=== PATIENT | female | born 1985 | race Two or more races ===

== ENCOUNTER 2017-04-29 13:16 | Inpatient (IN) | payer SELFPAY ==
[~2017-04-29 13:16] MED LIST: Nalbuphine 20 MG/1 ML Amp IVPUSH PRN; Ondansetron 4 MG/2 ML SDV IVPUSH PRN; Sodium Chloride 0.9% 10 ML Syringe FLUSH PRN
[2017-04-29] MEDS ORDERED: Oxytocin/Lactated Ringers 10 UNIT/1,000 ML BAG IV SCH (13:30)
[2017-04-29] MEDS: Lactated Ringers 1,000 ML IV SCH (13:46)
--- NOTE | 2017-04-29 14:31 | PCM.PREANE ---
Preanesthetic Assessment - Procedure Proposed Procedure: DENG - Anesthesia/Transfusion/Family Hx Anesthesia History: No Prior Anesthesia Family History of Anesthesia Reaction: No Transfusion History: No Prior Transfusion(s) Intubation History: Unknown - Review of Systems General: No Symptoms Pulmonary: No Symptoms Cardiovascular: No Symptoms Gastrointestinal: Other (GERD ) Neurological: No Symptoms Other: Reports: None - Physical Assessment NPO Status Date: 04/29/17 NPO Status Time: 08:00 O2 Sat by Pulse Oximetry: 99 Respiratory Rate: 18 Vital Signs: Last Vital Signs Temp 36.3 C 04/29/17 13:00 Pulse 76 04/29/17 13:00 Resp 18 04/29/17 13:00 BP 129/78 04/29/17 13:00 Pulse Ox 99 04/29/17 13:00 Height: 1.6 m Weight: 88.723 kg ASA Class: 2 Mental Status: Alert & Oriented x3 Airway Class: Mallampati = 1 Dentition: Reports: Normal Dentition Thyro-Mental Finger Breadths: 3 Mouth Opening Finger Breadths: 3 ROM/Head Extension: Full Lungs: Clear to Auscultation, Normal Respiratory Effort Cardiovascular: Regular Rate, Regular Rhythm - Lab Values: Laboratory Last Values WBC 12.59 K/mm3 (3.98-10.04) H 04/29/17 13:45 RBC 4.05 M/mm3 (3.98-5.22) 04/29/17 13:45 Hgb 11.9 gm/L (11.2-15.7) 04/29/17 13:45 Hct 35.7 % (34.1-44.9) 04/29/17 13:45 MCV 88.1 fl (79.4-94.8) 04/29/17 13:45 MCH 29.4 pg (25.6-32.2) 04/29/17 13:45 MCHC 33.3 g/dl (32.2-35.5) 04/29/17 13:45 RDW Std Deviation 42.5 fL (36.4-46.3) 04/29/17 13:45 Plt Count 212 K/mm3 (182-369) 04/29/17 13:45 MPV 12.0 fl (9.4-12.3) 04/29/17 13:45 Urine Color Yellow (Yellow) 04/29/17 12:47 Urine Appearance Clear (Clear) 04/29/17 12:47 Urine pH 7.0 (5.0-8.0) 04/29/17 12:47 Ur Specific [place] 1.020 (1.005-1.030) 04/29/17 12:47 Urine Protein 1+ (Negative) H 04/29/17 12:47 Urine Glucose (UA) Negative (Negative) 04/29/17 12:47 Urine Ketones Negative (Negative) 04/29/17 12:47 Urine Occult Blood 2+ (Negative) H 04/29/17 12:47 Urine Nitrite Positive (Negative) H 04/29/17 12:47 Urine Bilirubin Negative (Negative) 04/29/17 12:47 Urine Urobilinogen 0.2 (0.2-1.0) 04/29/17 12:47 Ur Leukocyte Esterase 1+ (Negative) H 04/29/17 12:47 Urine RBC 20-30 /hpf (0-5) H 04/29/17 12:47 Urine WBC 5-10 /hpf (0-5) H 04/29/17 12:47 Ur Epithelial Cells 0-5 /hpf (0-5) 04/29/17 12:47 Urine Bacteria Moderate /hpf (FEW) H 04/29/17 12:47 Urine Mucus Not seen /hpf (FEW) 04/29/17 12:47 Membrane Rupture Positive H 04/29/17 12:53 Blood Type AB POSITIVE 04/29/17 13:45 - Allergies Allergies/Adverse Reactions: Allergies Allergy/AdvReac Type Severity Reaction Status Date / Time No Known Allergies Allergy Verified 04/29/17 12:59 - Blood Blood Available: No Product(s) Available: None - Anesthesia Plan Pre-Op Medication Ordered: None - Acknowledgements Anesthesia Type Planned: Epidural Pt an Appropriate Candidate for the Planned Anesthesia: Yes Alternatives and Risks of Anesthesia Discussed w Pt/Guardian: Yes Pt/Guardian Understands and Agrees with Anesthesia Plan: Yes PreAnesthesia Questionnaire - CURRENT (IN HOUSE) MEDS Current Meds: Current Medications Lactated Ringer's (Ringers, Lactated) 1,000 mls @ 100 mls/hr IV ASDIRECTED DILIP Last Admin: 04/29/17 13:46 Dose: 999 mls/hr Oxytocin/Lactated Ringer's (Pitocin In Lr 10 Units/1,000 Ml) 10 unit in 1,000 mls @ 500 mls/hr IV .CONTINUOUS DILIP Nalbuphine HCl (Nubain) 10 mg IVPUSH Q2H PRN PRN Reason: Pain (moderate 4-6) Ondansetron HCl (Zofran) 4 mg IVPUSH Q4H PRN PRN Reason: Nausea/Vomiting Sodium Chloride (Saline Flush) 10 ml FLUSH ASDIRECTED PRN PRN Reason: Keep Vein Open
--- NOTE | 2017-04-29 15:08 | PCM.LDHP ---
L&D History of Present Illness - General Date of Service: 04/29/17 Admit Problem/Dx: Patient Status Order with Admit Dx/Problem 04/29/17 13:16 Patient Status [ADT] Routine Admission Diagnosis/Problem Admission Diagnosis/Problem Source of Information: Patient History Limitations: Reports: No Limitations - History of Present Illness Introduction:: Patient is a 31 y/o at 39 5/7 wks who presents today for SROM. Thinks this occurred around 1100 today. Presented to L&D and initially rated contractions as a 1/10, but now have progressed to a 3/10. Otherwise also notes issues of some dysuria. No fevers, chills, etc. 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 (Approximate): Social & Family History - Tobacco Use Smoking Status *Q: Never Smoker - Alcohol Use Alcohol Use History: No - Recreational Drug Use Recreational Drug Use: No H&P Review of Systems - Review of Systems: Review Of Systems: See Below General: Reports: No Symptoms Pulmonary: Reports: No Symptoms Cardiovascular: Reports: No Symptoms Gastrointestinal: Reports: Abdominal Pain (some contractions) Genitourinary: Reports: Dysuria Musculoskeletal: Reports: No Symptoms Psychiatric: Reports: No Symptoms L&D Exam - Exam Exam: See Below - Vital Signs Vital Signs: Last Vital Signs Temp 36.3 C 04/29/17 13:00 Pulse 76 04/29/17 13:00 Resp 18 04/29/17 14:49 BP 129/78 04/29/17 13:00 Pulse Ox 99 04/29/17 14:49 Weight: 88.723 kg - OB Specific Contraction Intensity: Mild to Moderate Movement: Active Heart Tones: Present Heart Tones per Min: 145 Heart Rate (FHR) Variability: Moderate (6-25 bmp) Presentation: Vertex - Caro Score Caro Score Cervix Position: Midposition Caro Score Consistency: Soft Caro Score Effacement: 31-50% Caro Score Dilation: 1-2 cm Caro Score 's Station: -3 Caro Score Total: 5 - Exam General: Alert, Oriented, Cooperative Lungs: Clear to Auscultation, Normal Respiratory Effort Cardiovascular: Regular Rate, Regular Rhythm GI/Abdominal Exam: Soft Genitourinary: Normal external exam Extremities: Normal Inspection Skin: Warm, Dry, Intact - Patient Data Lab Results Last 24 hrs: Laboratory Results - last 24 hr 04/29/17 04/29/17 04/29/17 Range/Units 12:47 12:53 13:45 WBC 12.59 H (3.98-10.04) K/mm3 RBC 4.05 (3.98-5.22) M/mm3 Hgb 11.9 (11.2-15.7) gm/L Hct 35.7 (34.1-44.9) % MCV 88.1 (79.4-94.8) fl MCH 29.4 (25.6-32.2) pg MCHC 33.3 (32.2-35.5) g/dl RDW Std Deviation 42.5 (36.4-46.3) fL Plt Count 212 (182-369) K/mm3 MPV 12.0 (9.4-12.3) fl Urine Color Yellow (Yellow) Urine Appearance Clear (Clear) Urine pH 7.0 (5.0-8.0) Ur Specific [place] 1.020 (1.005-1.030) Urine Protein 1+ H (Negative) Urine Glucose (UA) Negative (Negative) Urine Ketones Negative (Negative) Urine Occult Blood 2+ H (Negative) Urine Nitrite Positive H (Negative) Urine Bilirubin Negative (Negative) Urine Urobilinogen 0.2 (0.2-1.0) Ur Leukocyte Esterase 1+ H (Negative) Urine RBC 20-30 H (0-5) /hpf Urine WBC 5-10 H (0-5) /hpf Ur Epithelial Cells 0-5 (0-5) /hpf Urine Bacteria Moderate H (FEW) /hpf Urine Mucus Not seen (FEW) /hpf Membrane Rupture Positive H Blood Type Gel Antibody Screen 04/29/17 Range/Units 13:45 WBC (3.98-10.04) K/mm3 RBC (3.98-5.22) M/mm3 Hgb (11.2-15.7) gm/L Hct (34.1-44.9) % MCV (79.4-94.8) fl MCH (25.6-32.2) pg MCHC (32.2-35.5) g/dl RDW Std Deviation (36.4-46.3) fL Plt Count (182-369) K/mm3 MPV (9.4-12.3) fl Urine Color (Yellow) Urine Appearance (Clear) Urine pH (5.0-8.0) Ur Specific [place] (1.005-1.030) Urine Protein (Negative) Urine Glucose (UA) (Negative) Urine Ketones (Negative) Urine Occult Blood (Negative) Urine Nitrite (Negative) Urine Bilirubin (Negative) Urine Urobilinogen (0.2-1.0) Ur Leukocyte Esterase (Negative) Urine RBC (0-5) /hpf Urine WBC (0-5) /hpf Ur Epithelial Cells (0-5) /hpf Urine Bacteria (FEW) /hpf Urine Mucus (FEW) /hpf Membrane Rupture Blood Type AB POSITIVE Gel Antibody Screen Negative Result Diagrams: 04/29/17 13:45 - Problem List (1) 39 weeks gestation of SNOMED Code(s): 49390240 ICD Code: Z3A.39 - 39 WEEKS GESTATION OF Status: Acute Current Visit: Yes (2) Gestational diabetes mellitus, class A1 SNOMED Code(s): 78617145 ICD Code: O24.410 - GESTATIONAL DIABETES MELLITUS IN , DIET CONTROLLED Status: Acute Current Visit: Yes (3) SROM (spontaneous rupture of membranes) SNOMED Code(s): 643324780 ICD Code: NSD8042 - Status: Acute Current Visit: Yes (4) UTI (urinary tract infection) SNOMED Code(s): 81705134 ICD Code: N39.0 - URINARY TRACT INFECTION, SITE NOT SPECIFIED Status: Acute Current Visit: Yes Qualifiers: Urinary tract infection type: acute cystitis Hematuria presence: without hematuria Qualified Code(s): N30.00 - Acute cystitis without hematuria Problem List Initiated/Reviewed/Updated: Yes Orders Last 24hrs: Active Orders 24 hr Category Date Time Status Patient Status [ADT] Routine ADT 04/29/17 13:16 Active Activity as Tolerated [RC] PFP Care 04/29/17 13:16 Active Blood Glucose Check, Bedside [RC] Q4H Care 04/29/17 13:19 Active Communication Order [RC] ASDIRECTED Care 04/29/17 13:16 Active Heart Tones [RC] ASDIRECTED Care 04/29/17 13:16 Active Non Stress Test [RC] PER UNIT ROUTINE Care 04/29/17 13:00 Active Notify Provider [RC] PFP Care 04/29/17 13:16 Active Notify Provider [RC] PRN Care 04/29/17 13:16 Active Peripheral IV Care [RC] . DIRECTED Care 04/29/17 13:16 Active Vital Signs [RC] PER UNIT ROUTINE Care 04/29/17 13:00 Active Vital Signs [RC] PER UNIT ROUTINE Care 04/29/17 13:16 Active Regular Diet [DIET] Diet 04/29/17 Lunch Active Regular Diet [DIET] Diet 04/29/17 Lunch Active PATIENT RETYPE [BBK] Routine Lab 04/29/17 13:45 Results TYPE AND SCREEN [BBK] Routine Lab 04/29/17 13:45 Results UA W/MICROSCOPIC [URIN] Routine Lab 04/29/17 14:55 Received Lactated Ringers [Ringers, Lactated] 1,000 ml Med 04/29/17 13:30 Active IV ASDIRECTED Nalbuphine [Nubain] Med 04/29/17 13:16 Active 10 mg IVPUSH Q2H PRN Ondansetron [Zofran] Med 04/29/17 13:16 Active 4 mg IVPUSH Q4H PRN Oxytocin/Lactated Ringers [Pitocin in LR 10 Units/1,000 Med 04/29/17 13:30 Active ML] 10 unit in 1,000 ml IV .CONTINUOUS Sodium Chloride 0.9% [Saline Flush] Med 04/29/17 13:16 Active 10 ml FLUSH ASDIRECTED PRN Electronic Heart Tones Ext w TOCO [WOMSER] Oth 04/29/17 13:16 Ordered Routine Electronic Heart Tones Internal [WOMSER] Per Unit Oth 04/29/17 13:16 Ordered Routine Peripheral IV Insertion Adult [OM.PC] Routine Oth 04/29/17 13:16 Ordered Resuscitation Status Routine Resus Stat 04/29/17 13:00 Ordered Medication Orders Lactated Ringer's (Ringers, Lactated) 1,000 mls @ 100 mls/hr IV ASDIRECTED DILIP Last Admin: 04/29/17 13:46 Dose: 999 mls/hr Oxytocin/Lactated Ringer's (Pitocin In Lr 10 Units/1,000 Ml) 10 unit in 1,000 mls @ 500 mls/hr IV .CONTINUOUS DILIP Nalbuphine HCl (Nubain) 10 mg IVPUSH Q2H PRN PRN Reason: Pain (moderate 4-6) Ondansetron HCl (Zofran) 4 mg IVPUSH Q4H PRN PRN Reason: Nausea/Vomiting Sodium Chloride (Saline Flush) 10 ml FLUSH ASDIRECTED PRN PRN Reason: Keep Vein Open Assessment/Plan Comment:: 31 y/o at 39 5/7 wks presents for SROM * CBC and T&S * As patient feels contractions have gotten stronger since SROM will defer augmentation for now, but 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 Will give one dose of Ceftriaxone for presumed UTI while awaiting culture results
[2017-04-29] MEDS ORDERED: Sodium Chloride 0.9% 250 ML IV SCH (17:10)
[2017-04-29] MEDS: cefTRIAXone 1 GM in Sodium Chloride 0.9% 100 ML IV SCH (17:36)
--- NOTE | 2017-04-29 19:34 | PCM.PNLD ---
Labor Progress Note - VS & Meds Vital Signs: Last Vital Signs Temp 36.3 C 04/29/17 13:00 Pulse 76 04/29/17 13:00 Resp 18 04/29/17 14:49 BP 129/78 04/29/17 13:00 Pulse Ox 99 04/29/17 14:49 Active Medications: Current Medications Lactated Ringer's (Ringers, Lactated) 1,000 mls @ 100 mls/hr IV ASDIRECTED [facility] Last Admin: 04/29/17 13:46 Dose: 999 mls/hr Oxytocin/Lactated Ringer's (Pitocin In Lr 10 Units/1,000 Ml) 10 unit in 1,000 mls @ 500 mls/hr IV .CONTINUOUS [facility] Ceftriaxone Sodium 1 gm/ (Sodium Chloride) 100 mls @ 200 mls/hr IV Q24H [facility] Last Admin: 04/29/17 17:36 Dose: 200 mls/hr Sodium Chloride (Normal Saline) 250 mls @ 75 mls/hr IV ASDIRECTED [facility] Last Admin: 04/29/17 17:36 Dose: 75 mls/hr Nalbuphine HCl (Nubain) 10 mg IVPUSH Q2H PRN PRN Reason: Pain (moderate 4-6) Ondansetron HCl (Zofran) 4 mg IVPUSH Q4H PRN PRN Reason: Nausea/Vomiting Sodium Chloride (Saline Flush) 10 ml FLUSH ASDIRECTED PRN PRN Reason: Keep Vein Open - Uterine Contractions Uterine Monitoring Mode: External [place] Contraction Intensity: Moderate Uterine Resting Tone: Soft - Monitoring Monitor Mode: External Ultrasound Heart Rate (FHR) Baseline: 150 Heart Rate (FHR) Variability: Moderate (6-25 bmp) Accelerations: Present, 10x10 (=/<32 wks) Decelerations: None Strip Review: Category I - Labor Progress (Free Text) Labor Progress: Patient doing well. Rates contractions as a 5/10. No other new concerns. Defer SVE for now as do not want to put patient at increased risk for infection. As long as contractions keep getting stronger will defer augmentation. If no stronger by 2300 will initiate pitocin at that time. Family agrees.
[2017-04-30] MEDS ORDERED: Oxytocin/Lactated Ringers 10 UNIT/1,000 ML BAG IV SCH
--- NOTE | 2017-04-30 00:30 | PCM.PNLD ---
Labor Progress Note - VS & Meds Vital Signs: Last Vital Signs Temp 36.3 C 04/29/17 13:00 Pulse 76 04/29/17 13:00 Resp 18 04/29/17 14:49 BP 129/78 04/29/17 13:00 Pulse Ox 99 04/29/17 14:49 Active Medications: Current Medications Lactated Ringer's (Ringers, Lactated) 1,000 mls @ 100 mls/hr IV ASDIRECTED DILIP Last Admin: 04/29/17 13:46 Dose: 999 mls/hr Oxytocin/Lactated Ringer's (Pitocin In Lr 10 Units/1,000 Ml) 10 unit in 1,000 mls @ 500 mls/hr IV .CONTINUOUS DILIP Ceftriaxone Sodium 1 gm/ (Sodium Chloride) 100 mls @ 200 mls/hr IV Q24H DILIP Last Admin: 04/29/17 17:36 Dose: 200 mls/hr Sodium Chloride (Normal Saline) 250 mls @ 75 mls/hr IV ASDIRECTED DILIP Last Admin: 04/29/17 17:36 Dose: 75 mls/hr Oxytocin/Lactated Ringer's (Pitocin In Lr 10 Units/1,000 Ml) 10 unit in 1,000 mls @ 12 mls/hr IV TITRATE DILIP; 2 MUNITS/MIN PRN Reason: Protocol Nalbuphine HCl (Nubain) 10 mg IVPUSH Q2H PRN PRN Reason: Pain (moderate 4-6) Ondansetron HCl (Zofran) 4 mg IVPUSH Q4H PRN PRN Reason: Nausea/Vomiting Sodium Chloride (Saline Flush) 10 ml FLUSH ASDIRECTED PRN PRN Reason: Keep Vein Open - Uterine Contractions Uterine Monitoring Mode: External [place] Contraction Intensity: Moderate Uterine Resting Tone: Soft - Monitoring Monitor Mode: External Ultrasound Heart Rate (FHR) Baseline: 145 Heart Rate (FHR) Variability: Moderate (6-25 bmp) Accelerations: Present, 10x10 (=/<32 wks) Decelerations: None Strip Review: Category I - Vaginal Exam Dilation (cm): 2-3 Effacement (Percent): 60 Station: -3 Cervical Position: Midposition - Labor Progress (Free Text) Labor Progress: Patient states in the last 30 minutes or so contractions have become slightly stronger. Only getting them every 5 minutes or so per her report. Is agreeable to pitocin augmentation now.
[2017-04-30] MEDS: Lactated Ringers 1,000 ML IV SCH ×5 (00:36→12:51)
[2017-04-30] MEDS ORDERED: diphenhydrAMINE 50 MG/ML SDV IVPUSH PRN (05:57)
[2017-04-30] MEDS ORDERED: Ondansetron 4 MG/2 ML SDV IVPUSH PRN (05:57)
[2017-04-30] MEDS ORDERED: ePHEDrine 50 MG/ML SDV IVPUSH PRN (05:57)
[2017-04-30] MEDS ORDERED: fentaNYL 100 MCG/2 ML SDV EPIDUR PRN (05:57)
[2017-04-30] MEDS ORDERED: Bupivacaine/fentaNYL/NS 100 ML Bag EPIDUR SCH (06:00)
--- NOTE | 2017-04-30 08:28 | PCM.PNLD ---
Labor Progress Note - VS & Meds Vital Signs: Last Vital Signs Temp 36.3 C 04/29/17 13:00 Pulse 76 04/29/17 13:00 Resp 18 04/29/17 14:49 BP 129/78 04/29/17 13:00 Pulse Ox 99 04/29/17 14:49 Active Medications: Current Medications Diphenhydramine HCl (Benadryl) 25 mg IVPUSH Q6H PRN PRN Reason: Pruritis Ephedrine Sulfate (Ephedrine Sulfate) 5 mg IVPUSH ASDIRECTED PRN PRN Reason: Hypotension Fentanyl (Sublimaze) 100 mcg EPIDUR Q3H PRN PRN Reason: Pain Last Admin: 04/30/17 06:21 Dose: 100 mcg Fentanyl/Bupivacaine HCl (Fentanyl/Bupivacaine/Ns 2 Mcg-0.125% 100 Ml) 100 ml EPIDUR ASDIRECTED DILIP Last Admin: 04/30/17 06:21 Dose: 100 ml Lactated Ringer's (Ringers, Lactated) 1,000 mls @ 100 mls/hr IV ASDIRECTED DILIP Last Admin: 04/30/17 08:16 Dose: 500 mls/hr Oxytocin/Lactated Ringer's (Pitocin In Lr 10 Units/1,000 Ml) 10 unit in 1,000 mls @ 500 mls/hr IV .CONTINUOUS DILIP Ceftriaxone Sodium 1 gm/ (Sodium Chloride) 100 mls @ 200 mls/hr IV Q24H DILIP Last Admin: 04/29/17 17:36 Dose: 200 mls/hr Sodium Chloride (Normal Saline) 250 mls @ 75 mls/hr IV ASDIRECTED DILIP Last Admin: 04/29/17 17:36 Dose: 75 mls/hr Oxytocin/Lactated Ringer's (Pitocin In Lr 10 Units/1,000 Ml) 10 unit in 1,000 mls @ 12 mls/hr IV TITRATE DILIP; 2 MUNITS/MIN PRN Reason: Protocol Last Titration: 04/30/17 06:45 Dose: 1 munits/min, 6 mls/hr Nalbuphine HCl (Nubain) 10 mg IVPUSH Q2H PRN PRN Reason: Pain (moderate 4-6) Ondansetron HCl (Zofran) 4 mg IVPUSH Q4H PRN PRN Reason: Nausea/Vomiting Ondansetron HCl (Zofran) 4 mg IVPUSH ONETIME PRN PRN Reason: Nausea/Vomiting Sodium Chloride (Saline Flush) 10 ml FLUSH ASDIRECTED PRN PRN Reason: Keep Vein Open - Uterine Contractions Uterine Monitoring Mode: External [place] Contraction Intensity: Moderate Uterine Resting Tone: Soft - Monitoring Monitor Mode: External Ultrasound Heart Rate (FHR) Baseline: 145 Heart Rate (FHR) Variability: Moderate (6-25 bmp) Accelerations: Present, 10x10 (=/<32 wks) Decelerations: Late (isolated, after epidural) Strip Review: Category II - Vaginal Exam Dilation (cm): 4 Effacement (Percent): 80 Station: -2 Cervical Position: Midposition - Labor Progress (Free Text) Labor Progress: Patient became very uncomfortable after start of pitocin. Currently at 1. Completed epidural around 0645. Checked now with forebag noted. AROM performed with release of clear fluid. Continue present management
--- NOTE | 2017-04-30 13:08 | PCM.PNLD ---
Labor Progress Note - VS & Meds Vital Signs: Last Vital Signs Temp 36.3 C 04/29/17 13:00 Pulse 76 04/29/17 13:00 Resp 18 04/29/17 14:49 BP 129/78 04/29/17 13:00 Pulse Ox 99 04/29/17 14:49 Active Medications: Current Medications Diphenhydramine HCl (Benadryl) 25 mg IVPUSH Q6H PRN PRN Reason: Pruritis Ephedrine Sulfate (Ephedrine Sulfate) 5 mg IVPUSH ASDIRECTED PRN PRN Reason: Hypotension Fentanyl (Sublimaze) 100 mcg EPIDUR Q3H PRN PRN Reason: Pain Last Admin: 04/30/17 06:21 Dose: 100 mcg Fentanyl/Bupivacaine HCl (Fentanyl/Bupivacaine/Ns 2 Mcg-0.125% 100 Ml) 100 ml EPIDUR ASDIRECTED DILIP Last Admin: 04/30/17 06:21 Dose: 100 ml Lactated Ringer's (Ringers, Lactated) 1,000 mls @ 100 mls/hr IV ASDIRECTED DILIP Last Admin: 04/30/17 12:51 Dose: 500 mls/hr Oxytocin/Lactated Ringer's (Pitocin In Lr 10 Units/1,000 Ml) 10 unit in 1,000 mls @ 500 mls/hr IV .CONTINUOUS DILIP Ceftriaxone Sodium 1 gm/ (Sodium Chloride) 100 mls @ 200 mls/hr IV Q24H DILIP Last Admin: 04/29/17 17:36 Dose: 200 mls/hr Sodium Chloride (Normal Saline) 250 mls @ 75 mls/hr IV ASDIRECTED DILIP Last Admin: 04/29/17 17:36 Dose: 75 mls/hr Oxytocin/Lactated Ringer's (Pitocin In Lr 10 Units/1,000 Ml) 10 unit in 1,000 mls @ 12 mls/hr IV TITRATE DILIP; 2 MUNITS/MIN PRN Reason: Protocol Last Titration: 04/30/17 12:54 Dose: 10 munits/min, 60 mls/hr Nalbuphine HCl (Nubain) 10 mg IVPUSH Q2H PRN PRN Reason: Pain (moderate 4-6) Ondansetron HCl (Zofran) 4 mg IVPUSH Q4H PRN PRN Reason: Nausea/Vomiting Ondansetron HCl (Zofran) 4 mg IVPUSH ONETIME PRN PRN Reason: Nausea/Vomiting Sodium Chloride (Saline Flush) 10 ml FLUSH ASDIRECTED PRN PRN Reason: Keep Vein Open - Uterine Contractions Uterine Monitoring Mode: External [place] Contraction Intensity: Moderate Uterine Resting Tone: Soft - Monitoring Monitor Mode: External Ultrasound Heart Rate (FHR) Baseline: 150 Heart Rate (FHR) Variability: Moderate (6-25 bmp) Accelerations: Present, 10x10 (=/<32 wks) Decelerations: Late (rare) Strip Review: Category II - Vaginal Exam Dilation (cm): 5-6 Effacement (Percent): 90 Station: -1 Cervical Position: Midposition - Labor Progress (Free Text) Labor Progress: Patient pitocin started again at 1030 - currently at 1000. Starting to feel more of her contractions with epidural. FHT's with periods of less variabiliy and then moderate variability with spontaneous accelerations. Good scalp stimulation with check. Continue present management
[2017-04-30] MEDS ORDERED: Calcium Carbonate 500 MG Tab.Chew PO PRN (13:17)
[2017-04-30] MEDS ORDERED: Sodium Chloride 0.9% 100 ML ONE (17:44)
[2017-04-30] MEDS ORDERED: Ampicillin 2 GM in Sodium Chloride 0.9% 100 ML IV ONE (17:45)
--- NOTE | 2017-04-30 17:47 | PCM.SN ---
- Free Text/Narrative Note: 1745 Patient started pushing. [place] warm to touch. FHR with increase in baseline to 165 bpm. Temp of 101.2. Will start Ampicillin and Gentamicin for chorioamnionitis Liz Hirsch MD
[2017-04-30] MEDS: cefTRIAXone 1 GM in Sodium Chloride 0.9% 100 ML IV SCH (17:55)
[2017-04-30] MEDS ORDERED: Acetaminophen 325 MG Tab PO ONE (18:00)
--- NOTE | 2017-04-30 19:55 | PCM.DEL ---
L & D Note - General Info Date of Service: 04/30/17 - Delivery Note Labor: Augmented by Oxytocin Delivery Outcome: Livebirth Delivery Method: Spontaneous Vaginal Delivery-Single Presentation: Left Occiput Anterior (MOLLY) Nuchal Cord: None Anesthesia Type: Epidural Amniotic Fluid Description: Clear Episiotomy Type: None Laceration: 2nd Degree, Labial (extended up bilateral labia) Suture type: Vicryl Suture size: 2-0 Placenta: Intact, Spontaneous Cord: 3 Vessels Estimated Blood Loss: 300 Resuscitation Needed: Yes : Bulb Syringe, Stimulated, Warmed, Sherwood Used, Warmer Used Score 1 min: 7 Score 5 min: 9 Delivery Comments (Free Text/Narrative):: Patient found to be complete and began pushing. With maternal pushing there was gradual tachycardia. Maternal temperature assessed and found to be elevated to 101.2. Ampicillin and Gentamicin started for chorioamnionitis. Patient continued pushing and head delivered from MOLLY presentation. No nuchal cord present. With gentle downward traction the shoulders and body delivered. Infant placed on maternal abdomen. Cord clamped and cut. Cord blood obtained. Placenta allowed time to separate and expelled intact. Inspection of the perineum showed a 2nd degree vaginal laceration which then extended up the bilateral labia. Vaginal portion of laceration repaired with a 2-0 vicryl in the typical fashion. The bilateral labial portion of tears repaired with separate 2-0 vicryl sutures in a subcuticular stitch - Patient Data Vitals - Most Recent: Last Vital Signs Temp 36.3 C 04/29/17 13:00 Pulse 76 04/29/17 13:00 Resp 18 04/29/17 14:49 BP 129/78 04/29/17 13:00 Pulse Ox 99 04/29/17 14:49 Weight - Most Recent: 88.723 kg I&O - Last 24 Hours: Intake & Output 04/30/17 04/30/17 04/30/17 06:59 14:59 22:59 Intake Total 0 Balance 0 Lab Results Last 24 Hours: Laboratory Results - last 24 hr 04/29/17 04/30/17 04/30/17 Range/Units 21:32 02:31 05:19 POC Glucose 60 L 81 103 (70-105) mg/dL 04/30/17 04/30/17 04/30/17 Range/Units 08:13 12:26 16:08 POC Glucose 106 H 88 95 (70-105) mg/dL [place] Results Last 24 Hours: Microbiology 04/29/17 14:45 Urine Culture - Preliminary Urine, Catheterized Gram Positive Cocci Med Orders - Current: Current Medications Calcium Carbonate/Glycine (Tums) 500 mg PO Q2H PRN PRN Reason: Indigestion Diphenhydramine HCl (Benadryl) 25 mg IVPUSH Q6H PRN PRN Reason: Pruritis Ephedrine Sulfate (Ephedrine Sulfate) 5 mg IVPUSH ASDIRECTED PRN PRN Reason: Hypotension Fentanyl (Sublimaze) 100 mcg EPIDUR Q3H PRN PRN Reason: Pain Last Admin: 04/30/17 06:21 Dose: 100 mcg Fentanyl/Bupivacaine HCl (Fentanyl/Bupivacaine/Ns 2 Mcg-0.125% 100 Ml) 100 ml EPIDUR ASDIRECTED DILIP Last Admin: 04/30/17 06:21 Dose: 100 ml Lactated Ringer's (Ringers, Lactated) 1,000 mls @ 100 mls/hr IV ASDIRECTED [facility] Last Admin: 04/30/17 12:51 Dose: 500 mls/hr Oxytocin/Lactated Ringer's (Pitocin In Lr 10 Units/1,000 Ml) 10 unit in 1,000 mls @ 500 mls/hr IV .CONTINUOUS DILIP Ceftriaxone Sodium 1 gm/ (Sodium Chloride) 100 mls @ 200 mls/hr IV Q24H DILIP Last Admin: 04/30/17 17:55 Dose: Not Given Sodium Chloride (Normal Saline) 250 mls @ 75 mls/hr IV ASDIRECTED [facility] Last Admin: 04/29/17 17:36 Dose: 75 mls/hr Oxytocin/Lactated Ringer's (Pitocin In Lr 10 Units/1,000 Ml) 10 unit in 1,000 mls @ 12 mls/hr IV TITRATE DILIP; 2 MUNITS/MIN PRN Reason: Protocol Last Titration: 04/30/17 15:30 Dose: 8 munits/min, 48 mls/hr Nalbuphine HCl (Nubain) 10 mg IVPUSH Q2H PRN PRN Reason: Pain (moderate 4-6) Ondansetron HCl (Zofran) 4 mg IVPUSH Q4H PRN PRN Reason: Nausea/Vomiting Ondansetron HCl (Zofran) 4 mg IVPUSH ONETIME PRN PRN Reason: Nausea/Vomiting Sodium Chloride (Saline Flush) 10 ml FLUSH ASDIRECTED PRN PRN Reason: Keep Vein Open Discontinued Medications Ampicillin Sodium 2 gm/ Sodium (Chloride) 100 mls @ 200 mls/hr IV ONETIME ONE Stop: 04/30/17 18:14 Last Admin: 04/30/17 17:57 Dose: 200 mls/hr Gentamicin Sulfate 440 mg/ (Sodium Chloride) 111 mls @ 200 mls/hr IV ONETIME ONE Stop: 04/30/17 18:13 Last Admin: 04/30/17 18:26 Dose: 200 mls/hr Sodium Chloride (Normal Saline) Confirm Administered Dose 100 mls @ as directed .ROUTE .STK-MED ONE Stop: 04/30/17 17:45 Last Admin: 04/30/17 17:59 Dose: Not Given - Problem List & Annotations (1) 39 weeks gestation of SNOMED Code(s): 49847491 Code(s): Z3A.39 - 39 WEEKS GESTATION OF Status: Acute Current Visit: Yes (2) Gestational diabetes mellitus, class A1 SNOMED Code(s): 54065325 Code(s): O24.410 - GESTATIONAL DIABETES MELLITUS IN , DIET CONTROLLED Status: Acute Current Visit: Yes (3) SROM (spontaneous rupture of membranes) SNOMED Code(s): 337883774 Code(s): GKR8784 - Status: Acute Current Visit: Yes (4) UTI (urinary tract infection) SNOMED Code(s): 10556655 Code(s): N39.0 - URINARY TRACT INFECTION, SITE NOT SPECIFIED Status: Acute Current Visit: Yes Qualifiers: Urinary tract infection type: acute cystitis Hematuria presence: without hematuria Qualified Code(s): N30.00 - Acute cystitis without hematuria (5) Chorioamnionitis SNOMED Code(s): 61741456 Code(s): O41.1290 - CHORIOAMNIONITIS, UNSP TRIMESTER, NOT APPLICABLE OR UNSP Status: Acute Current Visit: Yes Qualifiers: Fetus number: single or unspecified fetus Trimester: third trimester Qualified Code(s): O41.1230 - Chorioamnionitis, third trimester, not applicable or unspecified (6) Vaginal delivery SNOMED Code(s): 904631582 Code(s): O80 - ENCOUNTER FOR FULL-TERM UNCOMPLICATED DELIVERY Status: Acute Current Visit: Yes - Problem List Review Problem List Initiated/Reviewed/Updated: Yes - My Orders Last 24 Hours: My Active Orders 04/30/17 00:00 Oxytocin/Lactated Ringers [Pitocin in LR 10 Units/1,000 ML] 10 unit in 1,000 ml IV TITRATE 04/30/17 13:17 Calcium Carbonate [Tums] 500 mg PO Q2H PRN - Assessment Assessment:: 31 y/o G1 now P1001 PPD#0 from - Plan Plan:: * Chorioamnionitis in labor - s/p Amp and Gent about 2 hours prior to delivery * UTI in - diagnosed on admission and received 1 dose of ceftriaxone at that time. Culture preliminary Group A strep. Will order Keflex while in house to continue treatment * GODMA1 - fasting blood sugar in AM. 2hr GTT at check * Routine cares * Encourage breast feeding * Discharge home in 2 days
--- NOTE | 2017-04-30 20:00 | PCM.DEL ---
L & D Note - General Info Date of Service: 04/30/17 - Delivery Note Presentation: Vertex - Patient Data Vitals - Most Recent: Last Vital Signs Temp 36.3 C 04/29/17 13:00 Pulse 76 04/29/17 13:00 Resp 18 04/29/17 14:49 BP 129/78 04/29/17 13:00 Pulse Ox 99 04/29/17 14:49 Weight - Most Recent: 88.723 kg I&O - Last 24 Hours: Intake & Output 04/30/17 04/30/17 04/30/17 06:59 14:59 22:59 Intake Total 0 Balance 0 Lab Results Last 24 Hours: Laboratory Results - last 24 hr 04/29/17 04/30/17 04/30/17 Range/Units 21:32 02:31 05:19 POC Glucose 60 L 81 103 (70-105) mg/dL 04/30/17 04/30/17 04/30/17 Range/Units 08:13 12:26 16:08 POC Glucose 106 H 88 95 (70-105) mg/dL [place] Results Last 24 Hours: Microbiology 04/29/17 14:45 Urine Culture - Preliminary Urine, Catheterized Gram Positive Cocci Med Orders - Current: Current Medications Calcium Carbonate/Glycine (Tums) 500 mg PO Q2H PRN PRN Reason: Indigestion Diphenhydramine HCl (Benadryl) 25 mg IVPUSH Q6H PRN PRN Reason: Pruritis Ephedrine Sulfate (Ephedrine Sulfate) 5 mg IVPUSH ASDIRECTED PRN PRN Reason: Hypotension Fentanyl (Sublimaze) 100 mcg EPIDUR Q3H PRN PRN Reason: Pain Last Admin: 04/30/17 06:21 Dose: 100 mcg Fentanyl/Bupivacaine HCl (Fentanyl/Bupivacaine/Ns 2 Mcg-0.125% 100 Ml) 100 ml EPIDUR ASDIRECTED DILIP Last Admin: 04/30/17 06:21 Dose: 100 ml Lactated Ringer's (Ringers, Lactated) 1,000 mls @ 100 mls/hr IV ASDIRECTED DILIP Last Admin: 04/30/17 12:51 Dose: 500 mls/hr Oxytocin/Lactated Ringer's (Pitocin In Lr 10 Units/1,000 Ml) 10 unit in 1,000 mls @ 500 mls/hr IV .CONTINUOUS DILIP Ceftriaxone Sodium 1 gm/ (Sodium Chloride) 100 mls @ 200 mls/hr IV Q24H DILIP Last Admin: 04/30/17 17:55 Dose: Not Given Sodium Chloride (Normal Saline) 250 mls @ 75 mls/hr IV ASDIRECTED DILIP Last Admin: 04/29/17 17:36 Dose: 75 mls/hr Oxytocin/Lactated Ringer's (Pitocin In Lr 10 Units/1,000 Ml) 10 unit in 1,000 mls @ 12 mls/hr IV TITRATE DILIP; 2 MUNITS/MIN PRN Reason: Protocol Last Titration: 04/30/17 15:30 Dose: 8 munits/min, 48 mls/hr Nalbuphine HCl (Nubain) 10 mg IVPUSH Q2H PRN PRN Reason: Pain (moderate 4-6) Ondansetron HCl (Zofran) 4 mg IVPUSH Q4H PRN PRN Reason: Nausea/Vomiting Ondansetron HCl (Zofran) 4 mg IVPUSH ONETIME PRN PRN Reason: Nausea/Vomiting Sodium Chloride (Saline Flush) 10 ml FLUSH ASDIRECTED PRN PRN Reason: Keep Vein Open Discontinued Medications Ampicillin Sodium 2 gm/ Sodium (Chloride) 100 mls @ 200 mls/hr IV ONETIME ONE Stop: 04/30/17 18:14 Last Admin: 04/30/17 17:57 Dose: 200 mls/hr Gentamicin Sulfate 440 mg/ (Sodium Chloride) 111 mls @ 200 mls/hr IV ONETIME ONE Stop: 04/30/17 18:13 Last Admin: 04/30/17 18:26 Dose: 200 mls/hr Sodium Chloride (Normal Saline) Confirm Administered Dose 100 mls @ as directed .ROUTE .STK-MED ONE Stop: 04/30/17 17:45 Last Admin: 04/30/17 17:59 Dose: Not Given - Problem List & Annotations (1) 39 weeks gestation of SNOMED Code(s): 23861989 Code(s): Z3A.39 - 39 WEEKS GESTATION OF Status: Acute Current Visit: Yes (2) Gestational diabetes mellitus, class A1 SNOMED Code(s): 72611176 Code(s): O24.410 - GESTATIONAL DIABETES MELLITUS IN , DIET CONTROLLED Status: Acute Current Visit: Yes (3) SROM (spontaneous rupture of membranes) SNOMED Code(s): 689805774 Code(s): PGT2339 - Status: Acute Current Visit: Yes (4) UTI (urinary tract infection) SNOMED Code(s): 52962308 Code(s): N39.0 - URINARY TRACT INFECTION, SITE NOT SPECIFIED Status: Acute Current Visit: Yes Qualifiers: Urinary tract infection type: acute cystitis Hematuria presence: without hematuria Qualified Code(s): N30.00 - Acute cystitis without hematuria - My Orders Last 24 Hours: My Active Orders 04/30/17 00:00 Oxytocin/Lactated Ringers [Pitocin in LR 10 Units/1,000 ML] 10 unit in 1,000 ml IV TITRATE 04/30/17 13:17 Calcium Carbonate [Tums] 500 mg PO Q2H PRN 04/30/17 19:55 Patient Status Manage Transfer [TRANSFER] Routine - Plan Plan:: 31 y/o at 39 5/7 wks presents for SROM * CBC and T&S * As patient feels contractions have gotten stronger since SROM will defer augmentation for now, but 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 Will give one dose of Ceftriaxone for presumed UTI while awaiting culture results
[2017-04-30] MEDS ORDERED: Docusate Sodium 100 MG Cap PO PRN (20:06)
[2017-04-30] MEDS ORDERED: Witch Hazel Medicated Pads 100/Jar TOP PRN (20:06)
[2017-04-30] MEDS ORDERED: Acetaminophen 325 MG Tab PO PRN (20:06)
[2017-04-30] MEDS ORDERED: Lanolin 100% Cream 7 GM Tube TOP PRN (20:06)
[2017-04-30] MEDS ORDERED: Benzocaine/Menthol 20%-0.5% Spray 56 GM Canister TOP PRN (20:06)
[2017-04-30] MEDS ORDERED: Bupivacaine 0.25% 10 ML SDV ONE (22:22)
[2017-05-01] MEDS: Cephalexin 500 MG Cap PO SCH ×4 (00:41→19:45)
--- NOTE | 2017-05-01 08:46 | PCM.SN ---
- Free Text/Narrative Note: day 1 Afebrile, no heavy vaginal bleeding no leg cramping uterus involuting normally patient stable possibly home tomorrow.
[2017-05-01] MEDS: Ibuprofen 600 MG Tab PO PRN (12:51)
[2017-05-02] MEDS: Cephalexin 500 MG Cap PO SCH ×4 (01:27→17:54)
--- NOTE | 2017-05-02 09:56 | PCM.DCSUM1 ---
Discharge Summary - Hospital Course Free Text/Narrative:: [facility] LIVE L/D Delivery Note Patient Name: LEELA HAYS Date of : 89 Patient Status: Inpatient Attending Provider: Liz Hirsch Date: 04/30/17 19:55 Initialization Date: 04/30/17 19:55 L & D Note - General Info Date of Service: 04/30/17 - Delivery Note Labor: Augmented by Oxytocin Delivery Outcome: Livebirth Delivery Method: Spontaneous Vaginal Delivery-Single Presentation: Left Occiput Anterior (MOLLY) Nuchal Cord: None Anesthesia Type: Epidural Amniotic Fluid Description: Clear Episiotomy Type: None Laceration: 2nd Degree, Labial (extended up bilateral labia) Suture type: Vicryl Suture size: 2-0 Placenta: Intact, Spontaneous Cord: 3 Vessels Estimated Blood Loss: 300 Resuscitation Needed: Yes : Bulb Syringe, Stimulated, Warmed, Eggleston Used, Warmer Used Score 1 min: 7 Score 5 min: 9 Delivery Comments (Free Text/Narrative):: Patient found to be complete and began pushing. With maternal pushing there was gradual tachycardia. Maternal temperature assessed and found to be elevated to 101.2. Ampicillin and Gentamicin started for chorioamnionitis. Patient continued pushing and head delivered from MOLLY presentation. No nuchal cord present. With gentle downward traction the shoulders and body delivered. Infant placed on maternal abdomen. Cord clamped and cut. Cord blood obtained. Placenta allowed time to separate and expelled intact. Inspection of the perineum showed a 2nd degree vaginal laceration which then extended up the bilateral labia. Vaginal portion of laceration repaired with a 2-0 vicryl in the typical fashion. The bilateral labial portion of tears repaired with separate 2-0 vicryl sutures in a subcuticular stitch - Patient Data Vitals - Most Recent: Last Vital Signs Temp 36.3 C 04/29/17 13:00 Pulse 76 04/29/17 13:00 Resp 18 04/29/17 14:49 BP 129/78 04/29/17 13:00 Pulse Ox 99 04/29/17 14:49 Weight - Most Recent: 88.723 kg I&O - Last 24 Hours: Intake & Output 04/30/17 04/30/17 04/30/17 06:59 14:59 22:59 Intake Total 0 Balance 0 Lab Results Last 24 Hours: Laboratory Results - last 24 hr 04/29/17 04/30/17 04/30/17 Range/Units 21:32 02:31 05:19 POC Glucose 60 L 81 103 (70-105) mg/dL 04/30/17 04/30/17 04/30/17 Range/Units 08:13 12:26 16:08 POC Glucose 106 H 88 95 (70-105) mg/dL [place] Results Last 24 Hours: Microbiology 04/29/17 14:45 Urine Culture - Preliminary Urine, Catheterized Gram Positive Cocci Med Orders - Current: Current Medications Calcium Carbonate/Glycine (Tums) 500 mg PO Q2H PRN PRN Reason: Indigestion Diphenhydramine HCl (Benadryl) 25 mg IVPUSH Q6H PRN PRN Reason: Pruritis Ephedrine Sulfate (Ephedrine Sulfate) 5 mg IVPUSH ASDIRECTED PRN PRN Reason: Hypotension Fentanyl (Sublimaze) 100 mcg EPIDUR Q3H PRN PRN Reason: Pain Last Admin: 04/30/17 06:21 Dose: 100 mcg Fentanyl/Bupivacaine HCl (Fentanyl/Bupivacaine/Ns 2 Mcg-0.125% 100 Ml) 100 ml EPIDUR ASDIRECTED [facility] Last Admin: 04/30/17 06:21 Dose: 100 ml Lactated Ringer's (Ringers, Lactated) 1,000 mls @ 100 mls/hr IV ASDIRECTED [facility] Last Admin: 04/30/17 12:51 Dose: 500 mls/hr Oxytocin/Lactated Ringer's (Pitocin In Lr 10 Units/1,000 Ml) 10 unit in 1,000 mls @ 500 mls/hr IV .CONTINUOUS [facility] Ceftriaxone Sodium 1 gm/ (Sodium Chloride) 100 mls @ 200 mls/hr IV Q24H [facility] Last Admin: 04/30/17 17:55 Dose: Not Given Sodium Chloride (Normal Saline) 250 mls @ 75 mls/hr IV ASDIRECTED [facility] Last Admin: 04/29/17 17:36 Dose: 75 mls/hr Oxytocin/Lactated Ringer's (Pitocin In Lr 10 Units/1,000 Ml) 10 unit in 1,000 mls @ 12 mls/hr IV TITRATE DILIP; 2 MUNITS/MIN PRN Reason: Protocol Last Titration: 04/30/17 15:30 Dose: 8 munits/min, 48 mls/hr Nalbuphine HCl (Nubain) 10 mg IVPUSH Q2H PRN PRN Reason: Pain (moderate 4-6) Ondansetron HCl (Zofran) 4 mg IVPUSH Q4H PRN PRN Reason: Nausea/Vomiting Ondansetron HCl (Zofran) 4 mg IVPUSH ONETIME PRN PRN Reason: Nausea/Vomiting Sodium Chloride (Saline Flush) 10 ml FLUSH ASDIRECTED PRN PRN Reason: Keep Vein Open Discontinued Medications Ampicillin Sodium 2 gm/ Sodium (Chloride) 100 mls @ 200 mls/hr IV ONETIME ONE Stop: 04/30/17 18:14 Last Admin: 04/30/17 17:57 Dose: 200 mls/hr Gentamicin Sulfate 440 mg/ (Sodium Chloride) 111 mls @ 200 mls/hr IV ONETIME ONE Stop: 04/30/17 18:13 Last Admin: 04/30/17 18:26 Dose: 200 mls/hr Sodium Chloride (Normal Saline) Confirm Administered Dose 100 mls @ as directed .ROUTE .STK-MED ONE Stop: 04/30/17 17:45 Last Admin: 04/30/17 17:59 Dose: Not Given - Problem List & Annotations (1) 39 weeks gestation of SNOMED Code(s): 50228828 Code(s): Z3A.39 - 39 WEEKS GESTATION OF Status: Acute Current Visit: Yes (2) Gestational diabetes mellitus, class A1 SNOMED Code(s): 40841072 Code(s): O24.410 - GESTATIONAL DIABETES MELLITUS IN , DIET CONTROLLED Status: Acute Current Visit: Yes (3) SROM (spontaneous rupture of membranes) SNOMED Code(s): 477002175 Code(s): LEP9051 - Status: Acute Current Visit: Yes (4) UTI (urinary tract infection) SNOMED Code(s): 36978212 Code(s): N39.0 - URINARY TRACT INFECTION, SITE NOT SPECIFIED Status: Acute Current Visit: Yes Qualifiers: Urinary tract infection type: acute cystitis Hematuria presence: without hematuria Qualified Code(s): N30.00 - Acute cystitis without hematuria (5) Chorioamnionitis SNOMED Code(s): 48907817 Code(s): O41.1290 - CHORIOAMNIONITIS, UNSP TRIMESTER, NOT APPLICABLE OR UNSP Status: Acute Current Visit: Yes Qualifiers: Fetus number: single or unspecified fetus Trimester: third trimester Qualified Code(s): O41.1230 - Chorioamnionitis, third trimester, not applicable or unspecified (6) Vaginal delivery SNOMED Code(s): 078519109 Code(s): O80 - ENCOUNTER FOR FULL-TERM UNCOMPLICATED DELIVERY Status: Acute Current Visit: Yes - Problem List Review Problem List Initiated/Reviewed/Updated: Yes - My Orders Last 24 Hours: My Active Orders 04/30/17 00:00 Oxytocin/Lactated Ringers [Pitocin in LR 10 Units/1,000 ML] 10 unit in 1,000 ml IV TITRATE 04/30/17 13:17 Calcium Carbonate [Tums] 500 mg PO Q2H PRN - Assessment Assessment:: 31 y/o G1 now P1001 PPD#0 from - Plan Plan:: * Chorioamnionitis in labor - s/p Amp and Gent about 2 hours prior to delivery * UTI in - diagnosed on admission and received 1 dose of ceftriaxone at that time. Culture preliminary Group A strep. Will order Keflex while in house to continue treatment * GODMA1 - fasting blood sugar in AM. 2hr GTT at check * Routine cares * Encourage breast feeding * Discharge home in 2 days Complete Keflex 500 mg every 6 hours for 7 days HPI Initial Comments: [facility] LIVE L/D Delivery Note Patient Name: LEELA HAYS Date of : 89 Patient Status: Inpatient Attending Provider: Liz Hirsch Date: 04/30/17 19:55 Initialization Date: 04/30/17 19:55 L & D Note - General Info Date of Service: 04/30/17 - Delivery Note Labor: Augmented by Oxytocin Delivery Outcome: Livebirth Infant Delivery Method: Spontaneous Vaginal Delivery-Single Presentation: Left Occiput Anterior (MOLLY) Nuchal Cord: None Anesthesia Type: Epidural Amniotic Fluid Description: Clear Episiotomy Type: None Laceration: 2nd Degree, Labial (extended up bilateral labia) Suture type: Vicryl Suture size: 2-0 Placenta: Intact, Spontaneous Cord: 3 Vessels Estimated Blood Loss: 300 Resuscitation Needed: Yes Julian: Bulb Syringe, Stimulated, Warmed, [place] Used, Warmer Used Score 1 min: 7 Score 5 min: 9 Delivery Comments (Free Text/Narrative):: Patient found to be complete and began pushing. With maternal pushing there was gradual tachycardia. Maternal temperature assessed and found to be elevated to 101.2. Ampicillin and Gentamicin started for chorioamnionitis. Patient continued pushing and head delivered from MOLLY presentation. No nuchal cord present. With gentle downward traction the shoulders and body delivered. placed on maternal abdomen. Cord clamped and cut. Cord blood obtained. Placenta allowed time to separate and expelled intact. Inspection of the perineum showed a 2nd degree vaginal laceration which then extended up the bilateral labia. Vaginal portion of laceration repaired with a 2-0 vicryl in the typical fashion. The bilateral labial portion of tears repaired with separate 2-0 vicryl sutures in a subcuticular stitch - Patient Data Vitals - Most Recent: Last Vital Signs Temp 36.3 C 04/29/17 13:00 Pulse 76 04/29/17 13:00 Resp 18 04/29/17 14:49 BP 129/78 04/29/17 13:00 Pulse Ox 99 04/29/17 14:49 Weight - Most Recent: 88.723 kg I&O - Last 24 Hours: Intake & Output 04/30/17 04/30/17 04/30/17 06:59 14:59 22:59 Intake Total 0 Balance 0 Lab Results Last 24 Hours: Laboratory Results - last 24 hr 04/29/17 04/30/17 04/30/17 Range/Units 21:32 02:31 05:19 POC Glucose 60 L 81 103 (70-105) mg/dL 04/30/17 04/30/17 04/30/17 Range/Units 08:13 12:26 16:08 POC Glucose 106 H 88 95 (70-105) mg/dL [place] Results Last 24 Hours: Microbiology 04/29/17 14:45 Urine Culture - Preliminary Urine, Catheterized Gram Positive Cocci Med Orders - Current: Current Medications Calcium Carbonate/Glycine (Tums) 500 mg PO Q2H PRN PRN Reason: Indigestion Diphenhydramine HCl (Benadryl) 25 mg IVPUSH Q6H PRN PRN Reason: Pruritis Ephedrine Sulfate (Ephedrine Sulfate) 5 mg IVPUSH ASDIRECTED PRN PRN Reason: Hypotension Fentanyl (Sublimaze) 100 mcg EPIDUR Q3H PRN PRN Reason: Pain Last Admin: 04/30/17 06:21 Dose: 100 mcg Fentanyl/Bupivacaine HCl (Fentanyl/Bupivacaine/Ns 2 Mcg-0.125% 100 Ml) 100 ml EPIDUR ASDIRECTED DILIP Last Admin: 04/30/17 06:21 Dose: 100 ml Lactated Ringer's (Ringers, Lactated) 1,000 mls @ 100 mls/hr IV ASDIRECTED DILIP Last Admin: 04/30/17 12:51 Dose: 500 mls/hr Oxytocin/Lactated Ringer's (Pitocin In Lr 10 Units/1,000 Ml) 10 unit in 1,000 mls @ 500 mls/hr IV .CONTINUOUS DILIP Ceftriaxone Sodium 1 gm/ (Sodium Chloride) 100 mls @ 200 mls/hr IV Q24H DILIP Last Admin: 04/30/17 17:55 Dose: Not Given Sodium Chloride (Normal Saline) 250 mls @ 75 mls/hr IV ASDIRECTED DILIP Last Admin: 04/29/17 17:36 Dose: 75 mls/hr Oxytocin/Lactated Ringer's (Pitocin In Lr 10 Units/1,000 Ml) 10 unit in 1,000 mls @ 12 mls/hr IV TITRATE DILIP; 2 MUNITS/MIN PRN Reason: Protocol Last Titration: 04/30/17 15:30 Dose: 8 munits/min, 48 mls/hr Nalbuphine HCl (Nubain) 10 mg IVPUSH Q2H PRN PRN Reason: Pain (moderate 4-6) Ondansetron HCl (Zofran) 4 mg IVPUSH Q4H PRN PRN Reason: Nausea/Vomiting Ondansetron HCl (Zofran) 4 mg IVPUSH ONETIME PRN PRN Reason: Nausea/Vomiting Sodium Chloride (Saline Flush) 10 ml FLUSH ASDIRECTED PRN PRN Reason: Keep Vein Open Discontinued Medications Ampicillin Sodium 2 gm/ Sodium (Chloride) 100 mls @ 200 mls/hr IV ONETIME ONE Stop: 04/30/17 18:14 Last Admin: 04/30/17 17:57 Dose: 200 mls/hr Gentamicin Sulfate 440 mg/ (Sodium Chloride) 111 mls @ 200 mls/hr IV ONETIME ONE Stop: 04/30/17 18:13 Last Admin: 04/30/17 18:26 Dose: 200 mls/hr Sodium Chloride (Normal Saline) Confirm Administered Dose 100 mls @ as directed .ROUTE .STK-MED ONE Stop: 04/30/17 17:45 Last Admin: 04/30/17 17:59 Dose: Not Given - Problem List & Annotations (1) 39 weeks gestation of SNOMED Code(s): 12995278 Code(s): Z3A.39 - 39 WEEKS GESTATION OF Status: Acute Current Visit: Yes (2) Gestational diabetes mellitus, class A1 SNOMED Code(s): 65181908 Code(s): O24.410 - GESTATIONAL DIABETES MELLITUS IN , DIET CONTROLLED Status: Acute Current Visit: Yes (3) SROM (spontaneous rupture of membranes) SNOMED Code(s): 617873035 Code(s): HZD7358 - Status: Acute Current Visit: Yes (4) UTI (urinary tract infection) SNOMED Code(s): 37010350 Code(s): N39.0 - URINARY TRACT INFECTION, SITE NOT SPECIFIED Status: Acute Current Visit: Yes Qualifiers: Urinary tract infection type: acute cystitis Hematuria presence: without hematuria Qualified Code(s): N30.00 - Acute cystitis without hematuria (5) Chorioamnionitis SNOMED Code(s): 41101964 Code(s): O41.1290 - CHORIOAMNIONITIS, UNSP TRIMESTER, NOT APPLICABLE OR UNSP Status: Acute Current Visit: Yes Qualifiers: Fetus number: single or unspecified fetus Trimester: third trimester Qualified Code(s): O41.1230 - Chorioamnionitis, third trimester, not applicable or unspecified (6) Vaginal delivery SNOMED Code(s): 591707482 Code(s): O80 - ENCOUNTER FOR FULL-TERM UNCOMPLICATED DELIVERY Status: Acute Current Visit: Yes - Problem List Review Problem List Initiated/Reviewed/Updated: Yes - My Orders Last 24 Hours: My Active Orders 04/30/17 00:00 Oxytocin/Lactated Ringers [Pitocin in LR 10 Units/1,000 ML] 10 unit in 1,000 ml IV TITRATE 04/30/17 13:17 Calcium Carbonate [Tums] 500 mg PO Q2H PRN - Assessment Assessment:: 31 y/o G1 now P1001 PPD#0 from - Plan Plan:: * Chorioamnionitis in labor - s/p Amp and Gent about 2 hours prior to delivery * UTI in - diagnosed on admission and received 1 dose of ceftriaxone at that time. Culture preliminary Group A strep. Will order Keflex while in house to continue treatment * GODMA1 - fasting blood sugar in AM. 2hr GTT at check * Routine cares * Encourage breast feeding * Discharge home in 2 days Complete Keflex 500 mg every 6 hours for 7 days Brief History: [facility] LIVE . L/D Delivery Note. Patient Name: LEELA HAYS [facility] Record Number: [id number]. Date of : 89Patient Status: Inpatient. Attending Provider: Liz Hirschcount Number: [id number]. Date: 04/30/17 19:55Initialization Date: 19:55. L & D Note. - General Info. Date of Service: 04/30/17. - Delivery Note. Labor: Augmented by Oxytocin. Delivery Outcome: Livebirth. Delivery Method: Spontaneous Vaginal Delivery-Single. Presentation: Left Occiput Anterior (MOLLY). Nuchal Cord: None. Anesthesia Type: Epidural. Amniotic Fluid Description: Clear. Episiotomy Type: None. Laceration: 2nd Degree, Labial (extended up bilateral labia). Suture type: Vicryl. Suture size : 2-0. Placenta: Intact, Spontaneous. Cord: 3 Vessels. Estimated Blood Loss: 300. Resuscitation Needed: Yes. : Bulb Syringe, Stimulated, Warmed, [place] Used, Warmer Used. Score 1 min: 7. Score 5 min: 9. Delivery Comments (Free Text/Narrative):: Patient found to be complete and began pushing. With maternal pushing there was gradual tachycardia. Maternal temperature assessed and found to be elevated to 101.2. Ampicillin and Gentamicin started for chorioamnionitis. Patient continued pushing and head delivered from MOLLY presentation. No nuchal cord present. With gentle downward traction the shoulders and body delivered. placed on maternal abdomen. Cord clamped and cut. Cord blood obtained. Placenta allowed time to separate and expelled intact. Inspection of the perineum showed a 2nd degree vaginal laceration which then extended up the bilateral labia. Vaginal portion of laceration repaired with a 2-0 vicryl in the typical fashion. The bilateral labial portion of tears repaired with separate 2-0 vicryl sutures in a subcuticular stitch. - Patient Data. Vitals - Most Recent : Last Vital Signs. Temp 36.3 C 04/29/17 13:00. Pulse 76 04/29/17 13:00. Resp 18 04/29/17 14:49. BP 129/78 04/29/17 13:00. Pulse Ox 99 04/29/17 14: 49. Weight - Most Recent: 88.723 kg. I&O - Last 24 Hours: Intake & Output. 04/30/171108/1710. 06:5914:5922:59. Intake Total0. Balance0. Lab Results Last 24 Hours: Laboratory Results - last 24 hr. 04/29/171108/1710Range/Units. 21:3202:3105:19. POC Glucose 60 L 81 103 (70-105) mg/dL. /Range/Units. 08:1312:2616:08. POC Glucose 106 H 88 95 (70 -105) mg/dL. Lake Results Last 24 Hours: Microbiology. 04/29/17 14:45Urine Culture - Preliminary. Urine, Catheterized Gram Positive Cocci. Med Orders - Current: Current Medications. Calcium Carbonate/Glycine (Tums) 500 mg PO Q2H PRN. PRN Reason: Indigestion. Diphenhydramine HCl (Benadryl) 25 mg IVPUSH Q6H PRN. PRN Reason: Pruritis. Ephedrine Sulfate (Ephedrine Sulfate) 5 mg IVPUSH ASDIRECTED PRN. PRN Reason: Hypotension. Fentanyl (Sublimaze) 100 mcg EPIDUR Q3H PRN. PRN Reason: Pain. Last Admin: 04/30/17 06:21 Dose: 100 mcg. Fentanyl/Bupivacaine HCl (Fentanyl/Bupivacaine/Ns 2 Mcg-0.125% 100 Ml ) 100 ml EPIDUR ASDIRECTED DILIP. Last Admin: 04/30/17 06:21 Dose: 100 ml. Lactated Ringer's (Ringers, Lactated) 1,000 mls @ 100 mls/hr IV ASDIRECTED DILIP. Last Admin: 04/30/17 12:51 Dose: 500 mls/hr. Oxytocin/Lactated Ringer's (Pitocin In Lr 10 Units/1,000 Ml) 10 unit in 1,000 mls @ 500 mls/hr IV .CONTINUOUS DILIP. Ceftriaxone Sodium 1 gm/ (Sodium Chloride) 100 mls @ 200 mls/ hr IV Q24H DILIP. Last Admin: 04/30/17 17:55 Dose: Not Given. Sodium Chloride ( Normal Saline) 250 mls @ 75 mls/hr IV ASDIRECTED DILIP. Last Admin: 04/29/17 17: 36 Dose: 75 mls/hr. Oxytocin/Lactated Ringer's (Pitocin In Lr 10 Units/1,000 Ml) 10 unit in 1,000 mls @ 12 mls/hr IV TITRATE DILIP; 2 MUNITS/MIN. PRN Reason : Protocol. Last Titration: 04/30/17 15:30 Dose: 8 munits/min, 48 mls/hr. Nalbuphine HCl (Nubain) 10 mg IVPUSH Q2H PRN. PRN Reason: Pain (moderate 4-6) . Ondansetron HCl (Zofran) 4 mg IVPUSH Q4H PRN. PRN Reason: Nausea/Vomiting. Ondansetron HCl (Zofran) 4 mg IVPUSH ONETIME PRN. PRN Reason: Nausea/ Vomiting. Sodium Chloride (Saline Flush) 10 ml FLUSH ASDIRECTED PRN. PRN Reason: Keep Vein Open. Discontinued Medications. Ampicillin Sodium 2 gm/ Sodium (Chloride) 100 mls @ 200 mls/hr IV ONETIME ONE. Stop: 04/30/17 18:14. Last Admin: 04/30/17 17:57 Dose: 200 mls/hr. Gentamicin Sulfate 440 mg/ ( Sodium Chloride) 111 mls @ 200 mls/hr IV ONETIME ONE. Stop: 04/30/17 18:13. Last Admin: 04/30/17 18:26 Dose: 200 mls/hr. Sodium Chloride (Normal Saline) Confirm Administered Dose 100 mls @ as directed .ROUTE .STK-MED ONE. Stop: 09/11 17:45. Last Admin: 04/30/17 17:59 Dose: Not Given. - Problem List & Annotations. (1) 39 weeks gestation of . SNOMED Code(s): 77924753. Code(s): Z3A.39 - 39 WEEKS GESTATION OF Status: Acute Current Visit: Yes. (2) Gestational diabetes mellitus, class A1. SNOMED Code(s): 40432938. Code(s): O24.410 - GESTATIONAL DIABETES MELLITUS IN , DIET CONTROLLED Status: Acute Current Visit: Yes. (3) SROM (spontaneous rupture of membranes). SNOMED Code(s): 163804764. Code(s): DTJ4575 - Status: Acute Current Visit: Yes. (4) UTI (urinary tract infection). SNOMED Code(s): 21549177. Code(s): N39.0 - URINARY TRACT INFECTION, SITE NOT SPECIFIED Status : Acute Current Visit: Yes. Qualifiers: Urinary tract infection type: acute cystitis Hematuria presence: without hematuria Qualified Code(s): N30.00 - Acute cystitis without hematuria. (5) Chorioamnionitis. SNOMED Code(s): 50200899. Code(s): O41.1290 - CHORIOAMNIONITIS, UNSP TRIMESTER, NOT APPLICABLE OR UNSP Status: Acute Current Visit: Yes. Qualifiers: Fetus number: single or unspecified fetus Trimester: third trimester Qualified Code(s): O41.1230 - Chorioamnionitis, third trimester, not applicable or unspecified. (6 ) Vaginal delivery. SNOMED Code(s): 427718703. Code(s): O80 - ENCOUNTER FOR FULL-TERM UNCOMPLICATED DELIVERY Status: Acute Current Visit: Yes. - Problem List Review. Problem List Initiated/Reviewed/Updated: Yes. - My Orders. Last 24 Hours: My Active Orders. 04/30/17 00:00. Oxytocin/Lactated Ringers [Pitocin in LR 10 Units/1,000 ML] 10 unit in 1,000 ml IV TITRATE. 04/30 13:17. Calcium Carbonate [Tums] 500 mg PO Q2H PRN. - Assessment. Assessment:: 31 y/o G1 now P1001 PPD#0 from . - Plan. Plan:: . Chorioamnionitis in labor - s/p Amp and Gent about 2 hours prior to delivery. UTI in - diagnosed on admission and received 1 dose of ceftriaxone at that time. Culture preliminary Group A strep. Will order Keflex while in house to continue treatment. GODMA1 - fasting blood sugar in AM. 2hr GTT at check. Routine cares. Encourage breast feeding. Discharge home in 2 days. Complete Keflex 500 mg every 6 hours for 7 days - Discharge Data Discharge Date: 05/02/17 Discharge Disposition: Home, Self-Care 01 Condition: Good - Discharge Diagnosis/Problem(s) (1) 39 weeks gestation of SNOMED Code(s): 25297737 ICD Code: Z3A.39 - 39 WEEKS GESTATION OF Status: Acute Current Visit: Yes (2) Chorioamnionitis SNOMED Code(s): 06241631 ICD Code: O41.1290 - CHORIOAMNIONITIS, UNSP TRIMESTER, NOT APPLICABLE OR UNSP Status: Acute Current Visit: Yes Qualifiers: Fetus number: single or unspecified fetus Trimester: third trimester Qualified Code(s): O41.1230 - Chorioamnionitis, third trimester, not applicable or unspecified (3) Gestational diabetes mellitus, class A1 SNOMED Code(s): 01157923 ICD Code: O24.410 - GESTATIONAL DIABETES MELLITUS IN , DIET CONTROLLED Status: Acute Current Visit: Yes (4) SROM (spontaneous rupture of membranes) SNOMED Code(s): 658521258 ICD Code: CVW0178 - Status: Acute Current Visit: Yes (5) UTI (urinary tract infection) SNOMED Code(s): 27504348 ICD Code: N39.0 - URINARY TRACT INFECTION, SITE NOT SPECIFIED Status: Acute Current Visit: Yes Qualifiers: Urinary tract infection type: acute cystitis Hematuria presence: without hematuria Qualified Code(s): N30.00 - Acute cystitis without hematuria (6) Vaginal delivery SNOMED Code(s): 543720282 ICD Code: O80 - ENCOUNTER FOR FULL-TERM UNCOMPLICATED DELIVERY Status: Acute Current Visit: Yes - Patient Summary/Data Complications: None Consults: None Hospital Course: Uneventful - Patient Instructions Diet: Regular Diet as Tolerated Driving: Do Not Drive Showering/Bathing: May Shower (48 hours) Notify Provider of: Fever, Increased Pain, Swelling and Redness, Drainage, Nausea and/or Vomiting - Discharge Plan Prescriptions/Med Rec: Cephalexin [IJD: Cephalexin] 500 mg PO Q6HR #28 capsule Home Medications: Home Meds Acetaminophen [Tylenol] 650 mg PO Q6H PRN tablet 05/02/17 [Rx] Benzocaine/Menthol [Dermoplast Pain Relief [place]] 1 spray TOP ASDIRECTED PRN canister 05/02/17 [Rx] Cephalexin [IJD: Cephalexin] 500 mg PO Q6HR #28 capsule 05/02/17 [Rx] Docusate Sodium [Colace] 100 mg PO BID PRN cap 05/02/17 [Rx] Ibuprofen [IJD: Ibuprofen] 600 mg PO Q6H PRN tablet 05/02/17 [Rx] Lanolin [Lansinoh HPA] 1 applic TOP ASDIRECTED PRN tube 05/02/17 [Rx] Witch Apple [Tucks] 1 pad TOP ASDIRECTED PRN pad 05/02/17 [Rx] Referrals: Liz Hirsch MD [Primary Care Provider] - (In 2 weeks) - Discharge Summary/Plan Comment DC Time >30 min.: No - Patient Data Vitals - Most Recent: Last Vital Signs Temp 97.5 F 05/02/17 04:32 Pulse 65 05/02/17 04:32 Resp 14 05/02/17 04:32 BP 104/61 05/02/17 04:32 Pulse Ox 98 05/02/17 04:32 Weight - Most Recent: 195 lb 9.6 oz I&O - Last 24 hours: Intake & Output 05/01/17 05/02/17 05/02/17 23:59 06:59 14:59 Intake Total Balance LAKE Results - Last 24 hrs: Microbiology 04/29/17 14:45 Urine Culture - Preliminary Urine, Catheterized Streptococcus Mitis/Oralis Med Orders - Current: Current Medications Acetaminophen (Tylenol) 650 mg PO Q4H PRN PRN Reason: mild pain or fever Benzocaine/Menthol (Dermoplast Pain Relief [place]) 0 gm TOP ASDIRECTED PRN PRN Reason: Perineal Comfort Measure Last Admin: 04/30/17 22:33 Dose: 56 gm Cephalexin (Keflex) 500 mg PO Q6HR [facility] Last Admin: 05/02/17 06:13 Dose: 500 mg Docusate Sodium (Colace) 100 mg PO BID PRN PRN Reason: Constipation Emollient Ointment (Lansinoh Hpa) 0 gm TOP ASDIRECTED PRN PRN Reason: Sore Nipples Last Admin: 04/30/17 22:34 Dose: 1 tube Ibuprofen (Motrin) 600 mg PO Q6H PRN PRN Reason: Mild pain or fever Last Admin: 05/01/17 12:51 Dose: 600 mg Witch Apple (Tucks) 1 pad TOP ASDIRECTED PRN PRN Reason: Hemorrhoid pain Last Admin: 04/30/17 22:34 Dose: 1 box Discontinued Medications Acetaminophen (Tylenol) 975 mg PO NOW ONE Stop: 04/30/17 18:01 Last Admin: 04/30/17 18:15 Dose: 975 mg Calcium Carbonate/Glycine (Tums) 500 mg PO Q2H PRN PRN Reason: Indigestion Diphenhydramine HCl (Benadryl) 25 mg IVPUSH Q6H PRN PRN Reason: Pruritis Ephedrine Sulfate (Ephedrine Sulfate) 5 mg IVPUSH ASDIRECTED PRN PRN Reason: Hypotension Fentanyl (Sublimaze) 100 mcg EPIDUR Q3H PRN PRN Reason: Pain Last Admin: 04/30/17 06:21 Dose: 100 mcg Fentanyl/Bupivacaine HCl (Fentanyl/Bupivacaine/Ns 2 Mcg-0.125% 100 Ml) 100 ml EPIDUR ASDIRECTED [facility] Last Admin: 04/30/17 06:21 Dose: 100 ml Lactated Ringer's (Ringers, Lactated) 1,000 mls @ 100 mls/hr IV ASDIRECTED [facility] Last Admin: 04/30/17 12:51 Dose: 500 mls/hr Oxytocin/Lactated Ringer's (Pitocin In Lr 10 Units/1,000 Ml) 10 unit in 1,000 mls @ 500 mls/hr IV .CONTINUOUS [facility] Ceftriaxone Sodium 1 gm/ (Sodium Chloride) 100 mls @ 200 mls/hr IV Q24H [facility] Last Admin: 04/30/17 17:55 Dose: Not Given Sodium Chloride (Normal Saline) 250 mls @ 75 mls/hr IV ASDIRECTED DILIP Last Admin: 04/29/17 17:36 Dose: 75 mls/hr Oxytocin/Lactated Ringer's (Pitocin In Lr 10 Units/1,000 Ml) 10 unit in 1,000 mls @ 12 mls/hr IV TITRATE DILIP; 2 MUNITS/MIN PRN Reason: Protocol Last Titration: 04/30/17 15:30 Dose: 8 munits/min, 48 mls/hr Ampicillin Sodium 2 gm/ Sodium (Chloride) 100 mls @ 200 mls/hr IV ONETIME ONE Stop: 04/30/17 18:14 Last Admin: 04/30/17 17:57 Dose: 200 mls/hr Gentamicin Sulfate 440 mg/ (Sodium Chloride) 111 mls @ 200 mls/hr IV ONETIME ONE Stop: 04/30/17 18:13 Last Admin: 04/30/17 18:26 Dose: 200 mls/hr Sodium Chloride (Normal Saline) Confirm Administered Dose 100 mls @ as directed .ROUTE .STK-MED ONE Stop: 04/30/17 17:45 Last Admin: 04/30/17 17:59 Dose: Not Given Nalbuphine HCl (Nubain) 10 mg IVPUSH Q2H PRN PRN Reason: Pain (moderate 4-6) Ondansetron HCl (Zofran) 4 mg IVPUSH Q4H PRN PRN Reason: Nausea/Vomiting Ondansetron HCl (Zofran) 4 mg IVPUSH ONETIME PRN PRN Reason: Nausea/Vomiting Sodium Chloride (Saline Flush) 10 ml FLUSH ASDIRECTED PRN PRN Reason: Keep Vein Open *Q Meaningful Use (DIS) - VTE *Q VTE Criteria *Q: - Stroke *Q Stroke Criteria *Q: - AMI *Q AMI Criteria *Q:
[2017-05-02] MEDS: Ibuprofen 600 MG Tab PO PRN (13:57)
== END 2017-05-02 17:50 | disposition home or self-care (01) | DRG 774 ==
LOC: UNDOADMOB 13:16 → JD.OB 13:16 → JD.OBCHECK 13:16 → JD.OB 13:16 → JD.OBCHECK 19:29 → OBSVTOIN 19:29 → INTOOBSV 19:29 → JD.OB 04-30 19:29 → UNDODISIN 05-02 17:50
PROVIDERS: ADMIT Obstetrics & Gynecology; ATTEND Obstetrics & Gynecology
PROC: 10E0XZZ Delivery of Products of Conception, External Approach (ICD-10-PCS; principal; 2017-04-29)
PROC: 0UQMXZZ Repair Vulva, External Approach (ICD-10-PCS; 2017-04-29)
PROC: 10907ZC Drainage of Amniotic Fluid, Therapeutic from Products of Conception, Via Natural or Artificial Opening (ICD-10-PCS; 2017-04-29)
PROC: 00HU33Z Insertion of Infusion Device into Spinal Canal, Percutaneous Approach (ICD-10-PCS; 2017-04-29)
PROC: 3E0R3BZ Introduction of Anesthetic Agent into Spinal Canal, Percutaneous Approach (ICD-10-PCS; 2017-04-29)
DX: O42.02 Full-term premature rupture of membranes, onset of labor within 24 hours of rupture (principal); O75.3 Other infection during labor; O41.1230 Chorioamnionitis, third trimester, not applicable or unspecified; Z37.0 Single live birth; Z3A.40 40 weeks gestation of pregnancy; O24.420 Gestational diabetes mellitus in childbirth, diet controlled; O70.0 First degree perineal laceration during delivery
CPT/HCPCS: 01967; 36415; 51701; 51702; 59300; 59409; 81001; 82962; 84112; 85027; 86850; 86900; 86901; 87086; 87088; 87184; A9270-GY; J0290; J0696; J1580; J2590; J3010; J7030; J7050; J7120